=== PATIENT | male | born 1995 | race Caucasian/White ===

== ENCOUNTER 2021-04-06 11:43 | Emergency (ER) | payer SELFPAY ==
[~2021-04-06] VITALS: Ht 175.3 cm; Wt 75.0 kg
[2021-04-06] MEDS ORDERED: NAPR-681 MT (15:10)
[2021-04-06 15:54] VITALS: BP 125/76
== END 2021-04-06 15:55 | disposition home or self-care (01) ==
LOC: ER 11:43
DX: B34.9 Viral infection, unspecified (principal); Z20.822 Contact with and (suspected) exposure to COVID-19
CPT/HCPCS: 71045; 87070; 87430; 87804; 99284; C9803; U0003; U0005